=== PATIENT | female | born 1995 | race American Indian/Alaskan Native ===

== ENCOUNTER 2020-07-13 09:39 | Outpatient (CLI) | payer OTHER ==
[2020-07-13] MEDS ORDERED: LACTATED RINGERS 1,000 ML ONE (11:36)
[2020-07-13] MEDS ORDERED: LACTATED RINGERS 1,000 ML IV ONE (12:00)
[2020-07-13 15:02] VITALS: BP 133/86
== END 2020-07-13 17:20 | disposition home or self-care (01) ==
LOC: TRG 09:39 → APU 09:39 → TRG 17:20
PROVIDERS: ATTEND Obstetrics & Gynecology
DX: O62.9 Abnormality of forces of labor, unspecified (principal); Z3A.39 39 weeks gestation of pregnancy
CPT/HCPCS: 59025; 96360; J7120; Q0177

== ENCOUNTER 2020-07-15 09:15 | Inpatient (IN) | payer OTHER ==
[2020-07-15] MEDS ORDERED: ACETAMINOPHEN 325 MG TAB PO PRN ×2 (09:27→19:46)
--- NOTE | 2020-07-15 09:31 | History and Physical Report ---
History of Present Illness Date of examination: 07/15/20 (SROM clear fluid) Date of admission: 07/15/20 09:18 Chief complaint: My water broke in the waiting room. History of present illness: Past History : 2 Term Births: 0 Premature Births: 0 Living Children: 0 Para: 0 Mult. Births: 0 Prev : 0 Aborta: 0 Elect. Ab: 1 Spont. 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 % Sun Exposure: rarely Family History Risk Factors: Family History of OR in females < 65 years old: no Dietary Counseling: pn yes PAP Smear History: Date of Last PAP Smear: 12/15/2016 Results: normal Past Medical History: Reviewed history and no changes required: Negative Past Medical History Past Surgical History: Reviewed history and no changes required: negative Past Medical History Anesthesia Complications: negative Anemia: negative Autoimmune Disorder: negative Bleeding Disorder: negative Blood Transfusions: negative Breast Disease: negative Diabetes: negative Heart Disease: negative Hypertension: negative Hepatitis/Liver Disease: negative Kidney Disease/UTI: negative Neurologic/Epilepsy/Migraines: negative Phlebitis/Varicosities: negative Psychiatric: negative Pulmonary Disease/Asthma: negative Thyroid Disease: negative Hospitalizations: negative Surgery (Non-trap operator): negative Abnormal PAP: negative YANELIS Exposure: negative Infertility: negative Uterine Anomaly: negative Uterine Surgery (not C/S): negative Other Gynecologic Problems: negative Infection History Hx of STD: none HIV Risk Eval: no Hepatitis B Risk Eval: low risk Personal hx. of genital herpes: no Partner hx. of genital herpes: no Rash, Viral, or Febrile illness since last LMP? no Varicella/Chicken Pox Status: Previous Disease TB Risk: no Genetic History Congenital Heart Defect: Mom: no Dad: no Laura Disease: Mom: no Dad: no Thalassemia Mom: no Dad: no Neural Tube Defect Mom: no Dad: no Down's Syndrome Mom: no Dad: no Ernie-Sachs Mom: no Dad: no Sickle Cell Disease/Trait Mom: yes Dad: no Hemophilia Mom: no Dad: no Muscular Dystrophy Mom: no Dad: no Cystic Fibrosis Mom: no Dad: no Kimbrelee Chorea Mom: no Dad: no Mental Retardation Mom: no Dad: no Fragile X Mom: no Dad: no Other Genetic/Chromosomal Disorder Mom: no Dad: no Child w/other defect Mom: no Dad: no Enviromental Exposures Xray Exposure: no Medication, drug, or alcohol use since LMP: no Chemical/Other Exposure: no Exposure to Cat Liter: no Hx of Parvovirus (Fifth Disease): no Occupational Exposure to Children: none Current Allergies (reviewed today): No known allergies Past History Past Medical History: no pertinent history Past Surgical History: no surgical history Family/Genetic History: none Social history: no significant social history - Obstetrical History Expected Date of Delivery: 07/18/20 Actual Gestation: 39 Week(s) 4 Day(s) : 2 Para: 0 Hx # Term Pregnancies: 0 Number of Pregnancies: 0 Spontaneous Abortions: 0 Induced : 1 Number of Living Children: 0 Medications and Allergies Allergies Allergy/AdvReac Type Severity Reaction Status Date / Time No Known Allergies Allergy Unverified 07/13/20 11:36 Home Medications Medication Instructions Recorded Confirmed Last Taken Type No Known Home Medications [No 07/13/20 07/13/20 Unknown History Reported Home Medications] Review of Systems All systems: negative - Physical Exam Breasts: Positive: deferred Cardiovascular: Regular rate Lungs: Positive: Normal air movement Abdomen: Positive: normal appearance, soft Genitourinary (Female): Positive: normal external genitalia, normal perenium Vulva: both: normal Vagina: Positive: normal moisture. Negative: discharge Cervix: Negative: lesion, discharge Uterus: Positive: normal size, normal contour Adnexa: both: normal Anus/Rectum: Positive: normal perianal skin, heme negative. Negative: rectal mass, hemorrhoids Extremities: Positive: normal Deep Tendon Reflex Grade: Normal +2 - Obstetrical FHR: category 1 Uterine Contraction Monitor Mode: External Cervical Dilatation: 2 (Clear fluid on exam glove noted.) Cervical Effacement Percentage: 50 station: -3 Uterine Contraction Pattern: Regular Uterine Tone Measurement Phase: Resting Uterine Contraction Intensity: Moderate Results Result Diagrams: 07/15/20 09:45 All other labs normal. GBS NEGATIVE HBsAg Screen Negative Negative *1 RPR Non Reactive Non Reactive *2 Rubella Antibodies, IgG 5.08 index Immune >0.99 *3 Non-immune <0.90 Equivocal 0.90 - 0.99 Immune >0.99 ABO Grouping O *4 Rh Factor Positive *5 Tests: (3) HIV Ag/Ab with Reflex ([id number]) HIV Screen 4th Generation wRfx Non Reactive Non Reactive *55 Tests: (4) HCV Ab w/Rflx to Verification ([id number]) ! HCV Ab <0.1 s/co ratio 0.0-0.9 *56 Tests: (5) Comment: ([id number]) ! Comment: [facility] *57 Non reactive HCV antibody screen is consistent with no HCV infection, unless recent infection is suspected or other evidence exists to indicate HCV infection. Assessment and Plan A: 25 y.o. @ 39+ wks in labor. SROM clear fluid while in office. Cervical exam /3. P: Admit to labor and delivery. IV fluid bolus for epidural placement. Anticipate . - Patient Problems (1) Rupture of membranes with clear amniotic fluid Onset Date: ~07/15/20 Current Visit: Yes Status: Acute Plan to address problem: Monitor color of fluid during labor. Monitor maternal temperature during labor. (2) with 39 completed weeks gestation Onset Date: ~07/11/20 Current Visit: Yes Status: Acute Plan to address problem: Monitor maternal and status during labor.
[2020-07-15] MEDS ORDERED: OXYTOCIN 10 UNIT/1 ML INJ IM PRN (10:00)
[2020-07-15] MEDS ORDERED: MINERAL OIL 30 ML ORAL LIQD PO PRN (10:00)
[2020-07-15] MEDS ORDERED: NALOXONE 0.4 MG/1 ML INJ IV PRN (10:00)
[2020-07-15] MEDS ORDERED: miSOPROStol 200 MCG TAB PR PRN (10:00)
[2020-07-15] MEDS ORDERED: ePHEDrine SULFATE 50 MG/1 ML INJ IV PRN ×2 (10:00→12:30)
[2020-07-15] MEDS ORDERED: OXYTOCIN DRIP 30 UNITS/500 ML BAG IV SCH ×3 (10:00→19:46)
[2020-07-15] MEDS ORDERED: ACETAMINOPHEN 500 MG TAB PO PRN ×2 (10:00→19:54)
[2020-07-15] MEDS ORDERED: PROMETHAZINE 25 MG TAB PO PRN ×2 (10:00→19:46)
[2020-07-15] MEDS ORDERED: fentaNYL 100 MCG/2 ML INJ IV PRN (10:00)
[2020-07-15] MEDS ORDERED: METHYLERGONOVINE MALEATE 0.2 MG/ML VIAL IM PRN (10:00)
[2020-07-15] MEDS ORDERED: CARBOPROST TROMETHAMINE 250 MCG/1 ML INJ IM PRN (10:00)
[2020-07-15] MEDS ORDERED: TERBUTALINE 1 MG/1 ML INJ SUB-Q PRN (10:00)
[2020-07-15] MEDS ORDERED: ONDANSETRON 4 MG/2 ML INJ IV PRN ×2 (10:00→19:46)
[2020-07-15] MEDS ORDERED: LIDOCAINE (2%) 20 MG/1 ML VIAL 20 ML MDV INFILTRATI SCH (10:00)
[2020-07-15] MEDS ORDERED: LOPERAMIDE 2 MG CAP PO PRN (10:00)
[2020-07-15] MEDS: LACTATED RINGERS 1,000 ML IV SCH ×3 (10:03→12:50)
[2020-07-15 10:10] LABS: Hemoglobin 11.5 gm/dl (10.1-14.3); Mean Corpuscular HGB Conc 36 % (30-34); Mean Corpuscular Volume 89 fl (79-97); Platelet Count 169 K/mm3 (140-440); Red Blood Count 3.61 M/mm3 (3.65-5.03); Red Cell Distribution Width 15.2 % (13.2-15.2)
--- NOTE | 2020-07-15 12:27 | Anesthesia Consultation ---
Anesthesia Consult and Med Hx Date of service: 07/15/20 - Airway Anesthetic Teeth Evaluation: Good ROM Head & Neck: Adequate Mental/Hyoid Distance: Adequate Mallampati Class: Class II Intubation Access Assessment: Good - Pulmonary Exam CTA: Yes - Cardiac Exam Cardiac Exam: RRR - Pre-Operative Health Status ASA Pre-Surgery Classification: ASA1, Emergency Proposed Anesthetic Plan: Epidural - Pulmonary Hx Asthma: No - Cardiovascular System Hx Hypertension: No - Central Nervous System Hx Seizures: No Hx Psychiatric Problems: No - Endocrine Hx Renal Disease: No Hx Hypothyroidism: No Hx Hyperthyroidism: No - Hematic Hx Anemia: No Hx Sickle Cell Disease: Yes (Trait) - Other Systems Hx Alcohol Use: No
--- NOTE | 2020-07-15 12:28 | Anesthesia Day of Surgery ---
Anesthesia Day of Surgery - Day of Surgery Patient Examined: Yes Patient H&P Reviewed: Yes Patient is NPO: No
[2020-07-15] MEDS ORDERED: NALOXONE 2 MG/2 ML INJ IV PRN (12:30)
--- NOTE | 2020-07-15 12:32 | Progress Note ---
Labor Epidural - Labor Epidural Start Time: 12:08 Stop Time: 12:18 Performed by:: BARBARA JENKINS Procedure: Patient is requesting a laboring epidural for laboring pain. Patient IDed, H&P reviewed, all questions and concerns were answered, and consent was signed. Timeout was performed at bedside. Patient in sitting position. Sterile prep and drape was performed. 3ml of 1% lidocaine skin wheal at L[3]- L [4]. 18- gauge Touhy epidural needle was advanced to loss of resistance with air technique. Negative CSF negative blood. Epidural catheter advanced to [12] centimeters. [-] Aspiration [-] test dose. Sterile dressing applied. Patient tolerated procedure.
[2020-07-15] MEDS ORDERED: fentaNYL-BUPIV 2 MCG/ML-0.125% 200 MCG/100 ML BAG EPIDURAL SCH (13:00)
--- NOTE | 2020-07-15 18:01 | Procedure Note ---
OB Delivery Note - Delivery Date of Delivery: 07/15/20 Medical Donation Professional: URBAN DUNN (Robbi RUIZ) Estimated blood loss: 300cc - Vaginal Delivery presentation: vertex Delivery position: OA Intrapartum events: none Delivery induction: none Delivery monitor: external FHT, external uterine Route of delivery: Delivery placenta: spontaneous Delivery cord: 3 umbilical vessels Episiotomy: none Delivery laceration: 2nd degree Delivery repair: vicryl Anesthesia: epidural Delivery comments: Viable female born over intact perineum. Placed skin to skin with mother, crying and vigorous. 3 vessel cord clamped and cut after cessation of pulsation. Placenta spontaneously delivered intact and complete. Counts correct. Mother and baby LDR stable. - Infant A at 1 minute: 9 at 5 minutes: 9 Infant Gender: Female (7lbs 6oz.)
[2020-07-15] MEDS ORDERED: IBUPROFEN 800 MG TAB PO ONE (18:06)
[2020-07-15] MEDS ORDERED: diphenhydrAMINE 25 MG CAP PO PRN (19:46)
[2020-07-15] MEDS ORDERED: WITCH HAZEL/ GLYCERIN PAD TP PRN (19:46)
[2020-07-15] MEDS ORDERED: LANOLIN/ZINC/DIMETHICONE (LANSINOH) 7 GM TP PRN (19:46)
[2020-07-15] MEDS ORDERED: MAGNESIUM HYDROXIDE (MOM) ORAL LIQD UDC PO PRN (19:46)
[2020-07-15] MEDS ORDERED: IBUPROFEN 600 MG TAB PO SCH (19:46)
[2020-07-15] MEDS ORDERED: BENZOCAINE/MENTHOL 20/0.5% TOP SPRAY 56 GM TP PRN (19:46)
[2020-07-15] MEDS: DOCUSATE SODIUM 100 MG CAP PO SCH (21:38)
[2020-07-16] MEDS: IBUPROFEN 800 MG TAB PO SCH ×4 (00:15→23:10)
[2020-07-16] MEDS ORDERED: DIPHtheria,PERTUSSIS(ACELL),TETANUS VACCINE/PF 0.5 ML VIAL IM ONE (06:00)
[2020-07-16 07:12] LABS: Hemoglobin 9.7 gm/dl (10.1-14.3)
--- NOTE | 2020-07-16 08:39 | Discharge Summary ---
Providers - Providers Date of Admission: 07/15/20 09:18 Date of discharge: 07/16/20 (desires d/c home today) Attending physician: MIGUEL LEBRON Primary care physician: HEBER SALDAÑA Hospitalization Reason for admission: Labor Condition: Good Pertinent studies: post delivery H&H 9.7/28.0, asymptomatic anemia d/t acute blood loss Procedures: Hospital course: uncomplicated and course1 Disposition: - TO HOME OR SELFCARE - Discharge Diagnoses (1) (spontaneous vaginal delivery) Status: Acute Core Measure Documentation - Palliative Care Palliative Care/ Comfort Measures: Not Applicable - Core Measures Any of the following diagnoses?: none Exam - Constitutional Vitals: Temp Pulse Resp BP Pulse Ox 98.3 F 92 H 20 118/81 100 07/16/20 04:50 07/16/20 04:50 07/16/20 04:50 07/16/20 04:50 07/16/20 01:42 General appearance: Present: no acute distress, well-nourished - EENT Eyes: Present: PERRL ENT: hearing intact, clear oral mucosa - Neck Neck: Present: supple, normal ROM - Respiratory Respiratory effort: normal Respiratory: bilateral: CTA - Cardiovascular Rhythm: regular Heart Sounds: Absent: rub, click - Extremities Extremities: No edema Peripheral Pulses: within normal limits - Abdominal General gastrointestinal: Present: soft, non-tender, non-distended, normal bowel sounds Female genitourinary: Present: normal - Integumentary Integumentary: Present: clear, warm, dry - Musculoskeletal Musculoskeletal: gait normal, strength equal bilaterally - Psychiatric Psychiatric: appropriate mood/affect, intact judgment & insight - Neurologic Neurologic: CNII-XII intact, moves all extremities - Additional findings Additional findings: fundus firm, lochia scant, breast feeding Plan Activity: no restrictions Diet: regular Follow up with: HEBER SALDAÑA MD [Primary Care Provider] - 08/13/20 (Congratulations! Please call [phone] to schedule your visit in 4 weeks. Call for any questions or concerns.)
[2020-07-16] MEDS: PRENATAL VIT27-FE FUMARATE-FOLIC ACID VIT TAB PO SCH (10:10)
[2020-07-16] MEDS: DOCUSATE SODIUM 100 MG CAP PO SCH ×2 (10:10→23:09)
[2020-07-16] MEDS ORDERED: FLU VACC QUAD 2020-2021 (6 months +)/PF 60 0.5 ML SYRINGE IM ONE (12:00)
[2020-07-17] MEDS: IBUPROFEN 800 MG TAB PO SCH ×2 (04:58→12:04)
--- NOTE | 2020-07-17 08:26 | Event Note ---
Date: 07/17/20 Previous D/C order placed yesterday morning. Pt remains d/t needing to stay because of elevated bilirubin levels. Pt is awaiting results of recent bilirubin levels drawn. VSSAF. Pt aware of discharge instructions. No plans for PP contraception.
[2020-07-17] MEDS: DOCUSATE SODIUM 100 MG CAP PO SCH (12:03)
[2020-07-17] MEDS: PRENATAL VIT27-FE FUMARATE-FOLIC ACID VIT TAB PO SCH (12:03)
[2020-07-17 12:39] VITALS: BP 119/77
== END 2020-07-17 13:26 | disposition home or self-care (01) | DRG 775 ==
LOC: TRG 09:15 → LD 09:18 → OB 19:46
PROVIDERS: ADMIT Obstetrics & Gynecology; ATTEND Obstetrics & Gynecology
PROC: 10E0XZZ Delivery of Products of Conception, External Approach (ICD-10-PCS; principal; 2020-07-15)
PROC: 3E0R3BZ Introduction of Anesthetic Agent into Spinal Canal, Percutaneous Approach (ICD-10-PCS; 2020-07-15)
PROC: 0KQM0ZZ Repair Perineum Muscle, Open Approach (ICD-10-PCS; 2020-07-15)
PROC: 00HU33Z Insertion of Infusion Device into Spinal Canal, Percutaneous Approach (ICD-10-PCS; 2020-07-15)
PROC: 3E0234Z Introduction of Serum, Toxoid and Vaccine into Muscle, Percutaneous Approach (ICD-10-PCS; 2020-07-16)
DX: O70.1 Second degree perineal laceration during delivery (principal); Z37.0 Single live birth; D62 Acute posthemorrhagic anemia; O99.02 Anemia complicating childbirth; Z20.828 Contact with and (suspected) exposure to other viral communicable diseases; Z3A.39 39 weeks gestation of pregnancy
CPT/HCPCS: 36415; 59025; 81001; 85014; 85018; 85027; 86592; 86850; 86900; 86901; 96360; 96361; 96365; 96366; G0378; A6250; J2590; J3010; J7120; Q0177; U0003